=== PATIENT | male | born 1955 | race Two or more races ===

== ENCOUNTER 2021-08-12 13:45 | Outpatient (CLI) | payer MEDICARE, OTHER | END 2021-08-12 13:46 | disposition home or self-care (01) | LOC: CSHWCC 13:45 | PROVIDERS: ATTEND Nurse Practitioner Family | DX: S81.801D Unspecified open wound, right lower leg, subsequent encounter (principal); R60.0 Localized edema | CPT/HCPCS: 29581; 97139; G0463; 99204 ==

== ENCOUNTER 2021-08-26 10:51 | Outpatient (CLI) | payer MEDICARE, OTHER | END 2021-08-26 10:52 | disposition home or self-care (01) | LOC: CSHWCC 10:51 | PROVIDERS: ATTEND Nurse Practitioner Family | DX: S81.801D Unspecified open wound, right lower leg, subsequent encounter (principal); R60.0 Localized edema ==

== ENCOUNTER 2021-09-23 13:31 | Outpatient (CLI) | payer OTHER, MEDICARE | END 2021-09-23 13:32 | disposition home or self-care (01) | LOC: CSHWCC 13:31 | PROVIDERS: ATTEND Nurse Practitioner Family | DX: S81.801D Unspecified open wound, right lower leg, subsequent encounter (principal); R60.0 Localized edema | CPT/HCPCS: 11042 ==